=== PATIENT | female | born 1980 | race American Indian/Alaskan Native ===

== ENCOUNTER 2017-02-18 07:43 | Emergency (ER) | payer BC, MEDICAID ==
[2017-02-18 08:44] LABS: Basophils % (Auto) 0.3 % (0.0-1.8); Eosinophils % (Auto) 1.9 % (0.0-4.3); Hematocrit 41.1 % (30.3-42.9); Hemoglobin 13.3 gm/dl (10.1-14.3); Mean Corpuscular HGB Conc 32 % (30-34); Mean Corpuscular Volume 79 fl (79-97); Platelet Count 278 K/mm3 (140-440); Red Blood Count 5.21 M/mm3 (3.65-5.03); Red Cell Distribution Width 14.2 % (13.2-15.2); White Blood Count 9.5 K/mm3 (4.5-11.0)
[2017-02-18 09:13] LABS: Mean Corpuscular Hemoglobin 26 pg (28-32)
[2017-02-18 09:27] LABS: Alanine Aminotransferase 14 units/L (7-56); Albumin/Globulin Ratio 1.1 %; Alkaline Phosphatase 86 units/L (35-129); Anion Gap 15 mmol/L; Blood Urea Nitrogen 14 mg/dL (7-17); Carbon Dioxide 28 mmol/L (22-30); Chloride 102.6 mmol/L (98-107); Glucose 120 mg/dL (65-100); Lipase 25 units/L (13-60); Potassium 4.4 mmol/L (3.6-5.0); Sodium 141 mmol/L (137-145); Total Protein 7.8 g/dL (6.3-8.2)
[2017-02-18 11:17] LABS: Bilirubin,Urine NEG (Negative); Blood,Urine NEG (Negative); Ketones,Urine NEG (Negative); Leukocyte Esterase,Urine TR (Negative); Mucus,Urine FEW /HPF; Nitrite,Urine NEG (Negative); Protein,Urine <15 mg/dL mg/dL (Negative); Urobilinogen,Urine < 2.0 mg/dL (<2.0)
--- NOTE | 2017-02-18 11:29 | Emergency Department Report ---
ED Abdominal Pain HPI - General Chief Complaint: Abdominal Pain Stated Complaint: ABD PAIN /BACK PAIN /HEADACHE/DIZZINESS/RT SIDE Time Seen by Provider: 02/18/17 11:14 Source: patient Mode of arrival: Ambulatory Limitations: No Limitations - History of Present Illness MD Complaint: abdominal pain -: Gradual Location: epigastric Radiation: back Severity: mild Severity scale (0 -10): 2 Quality: cramping Consistency: intermittent Improves With: nothing Worsens With: nothing Associated Symptoms: denies other symptoms Treatments Prior to Arrival: antacids - Related Data LMP (females 10-50): this week Home Medications Medication Instructions Recorded Confirmed Last Taken amLODIPine [Norvasc] 5 mg PO DAILY 06/13/13 02/18/17 02/17/17 08:00 Previous Rx's Medication Instructions Recorded Last Taken Type traMADol [Ultram] 50 mg PO Q6HR PRN #14 tablet 02/18/17 Unknown Rx Allergies Allergy/AdvReac Type Severity Reaction Status Date / Time No Known Allergies Allergy Verified 02/18/17 08:24 ED Review of Systems ROS: Stated complaint: ABD PAIN /BACK PAIN /HEADACHE/DIZZINESS/RT SIDE Other details as noted in HPI Comment: All other systems reviewed and negative Endocrine: no symptoms reported Gastrointestinal: abdominal pain, nausea ED Past Medical Hx - Past Medical History Hx Hypertension: Yes Additional medical history: HEMIFACIAL SPASMS. OBESITY - Surgical History Hx Breast Surgery: Yes (breast reduction 05/28/13) Additional Surgical History: ECTOPIC /RIGHT TUBE REMOVED - Social History Smoking Status: Never Smoker Substance Use Type: None - Medications Home Medications: Home Medications Medication Instructions Recorded Confirmed Last Taken Type amLODIPine [Norvasc] 5 mg PO DAILY 06/13/13 02/18/17 02/17/17 08:00 History traMADol [Ultram] 50 mg PO Q6HR PRN #14 tablet 02/18/17 Unknown Rx ED Physical Exam - General Limitations: No Limitations General appearance: alert - Head Head exam: Present: atraumatic - Eye Eye exam: Present: normal appearance - ENT ENT exam: Present: normal exam, normal orophraynx - Neck Neck exam: Present: normal inspection, full ROM - Respiratory Respiratory exam: Present: normal lung sounds bilaterally - Cardiovascular Cardiovascular Exam: Present: regular rate, normal rhythm, normal heart sounds - GI/Abdominal GI/Abdominal exam: Present: soft - Neurological Exam Neurological exam: Present: alert, altered, oriented X3 ED Course Vital Signs 02/18/17 02/18/17 02/18/17 08:26 10:09 10:15 Temperature 98.4 F Pulse Rate 89 Respiratory 17 17 Rate Blood Pressure 151/90 O2 Sat by Pulse 100 98 100 Oximetry 02/18/17 02/18/17 02/18/17 10:30 11:00 11:30 Temperature Pulse Rate Respiratory Rate Blood Pressure 141/79 150/93 138/87 O2 Sat by Pulse 97 97 97 Oximetry - Reevaluation(s) Reevaluation #1: 02/18/17 12:26 improved ED Medical Decision Making - Lab Data Result diagrams: 02/18/17 08:32 02/18/17 08:32 Critical care attestation.: If time is entered above; I have spent that time in minutes in the direct care of this critically ill patient, excluding procedure time. ED Disposition Clinical Impression: Abdominal pain, Gallbladder disease Disposition: DC-01 TO HOME OR SELFCARE Is pt being admited?: No Does the pt Need Aspirin: No Condition: Stable Instructions: Abdominal Pain (ED) Prescriptions: traMADol [Ultram] 50 mg PO Q6HR PRN #14 tablet PRN Reason: Pain Referrals: PRIMARY CARE, [Primary Care Provider] - 3-5 Days Forms: Work/School Release Form(ED)
[2017-02-18 11:54] VITALS: BP 138/87
--- NOTE | 2017-02-18 12:16 | Ultrasound Report ---
Sonogram right upper quadrant: History: Right upper quadrant pain. Findings: Normal aorta. Normal liver. No intrahepatic or extrahepatic duct dilatation. Common bile duct diameter 3.7 mm. Gallbladder wall thickness 2.2 mm. Sludge identified within the gallbladder with suspicion of adenomyomatosis. No definite calculi. Normal right kidney measures 11.7 x 4.8 x 5.9 cm. Cortical thickness is 1.6 cm. Normal pancreas. Impression Sludge within the gallbladder with suspicion of adenomyomatosis.
== END 2017-02-18 12:38 | disposition home or self-care (01) ==
LOC: ED 07:43
DX: K82.9 Disease of gallbladder, unspecified (principal); R10.13 Epigastric pain; I10 Essential (primary) hypertension
CPT/HCPCS: 36415; 76705; 80053; 81001; 83690; 84703; 85025; 99284